=== PATIENT | female | born 1995 | race Caucasian/White ===

== ENCOUNTER 2018-12-23 04:38 | Emergency (ER) | payer SELFPAY ==
[~2018-12-23] VITALS: Ht 167.6 cm; Wt 66.0 kg
[~2018-12-23 04:38] MED LIST: CIPROFLOXACN500 MG PO
[2018-12-23 07:46] VITALS: BP 113/58
== END 2018-12-23 08:18 | disposition home or self-care (01) | DRG 951 ==
LOC: ED 04:38
DX: Z04.41 Encounter for examination and observation following alleged adult rape (principal)

== ENCOUNTER 2024-07-02 16:47 | Emergency (ER) | payer BC ==
[~2024-07-02] VITALS: Ht 167.6 cm; Wt 68.0 kg
[2024-07-02 17:29] LABS: BASO% 0.2 % (0-3); EOS% 2.6 % (0-8); HEMATOCRIT 38.5 % (37.0-47.0); HEMOGLOBIN 13.1 g/dl (12.0-16.0); IMMATURE GRANULOCYTES 0.1 % (0.0-5.0); MONO% 6.6 % (2-13); NEUT# 4.6 thou/uL (2.00-7.15); NEUT% 56.5 % (42-76); RED BLOOD COUNT 4.36 mill/uL (4.20-5.60); RED CELL DISTRI WIDTH 13.1 % (11.5-15.5)
[2024-07-02 17:30] LABS: URINE BILIRUBIN - DIPSTICK Negative (NEGATIVE); URINE BLOOD DIPSTICK Small (NEGATIVE); URINE GLUCOSE - DIPSTICK Negative (NEGATIVE); URINE KETONE 15 mg/dL (NEGATIVE); URINE LEUK ESTERASE Negative (NEGATIVE); URINE NITRITE - DIPSTICK Negative (Negative); URINE PROTEIN - DIPSTICK Negative (NEG-TRACE); URINE UROBILINOGEN - DIPSTICK 0.2 E.U./dL (0.2)
[2024-07-02 17:34] LABS: URINE COLOR Yellow
[2024-07-02 17:35] LABS: MEAN CELL VOLUME 88.3 fL CALC (80.0-100.0)
[2024-07-02 17:47] LABS: ALBUMIN 4.7 g/dL (3.2-5.0); BILIRUBIN, TOTAL 0.6 mg/dL (0.02-1.3); CREATININE 0.6 mg/dL (0.5-1.0); POTASSIUM 4.1 mmol/l (3.5-5.1); TOTAL PROTEIN 7.8 g/dL (6.3-8.2)
[2024-07-02 17:52] LABS: URINE SQUAMOUS EPITHELIAL CELL FEW EPI/hpf (0-FEW); URINE WBC 0-2 WBC/hpf (0-5)
[2024-07-02 20:42] VITALS: BP 122/74
== END 2024-07-02 20:42 | disposition home or self-care (01) | DRG 833 ==
LOC: ED 16:47
PROVIDERS: Nurse Practitioner
DX: O20.9 Hemorrhage in early pregnancy, unspecified (principal); Z3A.01 Less than 8 weeks gestation of pregnancy